=== PATIENT | male | born 1935 | race Caucasian/White ===

== ENCOUNTER 2016-05-15 08:47 | Outpatient (CLI) | payer MEDICARE, BC ==
[~2016-05-15] VITALS: Ht 170.2 cm; Wt 70.1 kg
[~2016-05-15 08:47] MED LIST: ACID CONTROL150 MG PO; ARICEPT5 MG PO; ARTIFICIAL TEAR15 M5 OPHTH; ARTIFICIAL TEAR30 ML OPHTH; BACITRACIN1 PKT TOP; CELEXA40 MG PO; COLACE100 MG PO; COUMADIN ** IA3 MG PO; COUMADIN3 MG PO; CPAP INH; CYMBALTA60 MG PO; DULCOLAX10 MG R; DULCOLAX5 MG PO; DURAGESIC 75MC75 MCG TRANS; ECOTRIN81 MG PO; FLONASE ALLER15.8 ML NOSE; HYDROCODON-ACE1 EAC4 PO; KLONOPIN0.5 MG PO; LASIX20 MG PO; LEVAQUIN750 MG PO; LIPITOR10 MG PO; LOPRESSOR25 MG PO; LOPRESSOR50 M1 PO; MAALOX MAXIMUM355 ML PO; MILK OF MA400 MG/5 M PO; MIRALAX17 GM PO; MIRTAZAPINE45 MG PO; MOVANTIK25 MG PO; NORCO 10-325 T1 EACH PO; NORCO 5-325 TA1 EACH PO; ONDANSETRON ODT4 MG PO; PAIN RELIEVER325 MG PO; PREPARATION H26 GM TOP; PROTONIX40 MG PO; RITALIN; TEARS NATURALE1 EACH; TUMS REGULAR ST1 TAB PO; ZYPREXA5 MG PO; ZYRTEC10 M3
--- NOTE | 2016-05-15 09:45 | NUR ---
D: RED/ SWOLLEN/ PURULENT SUPRAPUBIC SITE I: DR GAMBOA NOTIFIED. ASSESSES SITE. CANCELS PROCEDURE AND ORDERS PT TO BE DISMISSED TO DR. MUELLER OFFICE FOR TREATMENT OF SUPRAPUBIC CATH SITE. R; AGREES TO PLAN. PT NOT HAPPY AND DEMANDING NOW TO GET UP AND GET OUT OF HERE. I; FULL LIFT TO W/C TO DISMISS
[2016-05-15] MEDS ORDERED: NORCO 5-325 TA1 EACH PO (14:10)
== END 2016-05-15 10:25 | disposition disaster alternative care site (69) ==
LOC: GCAT 08:47 → GPCU 08:47 → GPOC 09:00 → GCAT 10:25 → GPOC 15:00
DX: I70.25 Atherosclerosis of native arteries of other extremities with ulceration (principal); Z53.9 Procedure and treatment not carried out, unspecified reason
CPT/HCPCS: J0690; J2001; J7030

== ENCOUNTER 2016-06-05 07:43 | Day surgery (SDC) | payer MEDICARE, BC ==
[~2016-06-05] VITALS: Ht 170.2 cm; Wt 72.2 kg
--- NOTE | ~2016-06-05 | OR ---
PATIENT'S NAME: ALEKSANDR BRADLEY [facility] AGE: 80 Y [address] ROOM: [place] [address] LOCATION: [facility] [place] ADMIT DATE: 06/05/2016 OR/Procedure Report DISCHARGE DATE: 06/05/2016 FAMILY PHYSICIAN: Reuben Garcia MD ATTENDING PHYSICIAN: Joao Gamboa SURGEON: Joao Gamboa MD NITRIC ACID CONCENTRATOR OPERATOR: DATE OF PROCEDURE: 06/05/2016 PREOPERATIVE DIAGNOSIS: Critical ischemia of the left lower extremity. POSTOPERATIVE DIAGNOSIS: Critical ischemia of the left lower extremity. PROCEDURE: Left lower extremity angiogram, SFA, and popliteal balloon angioplasty as well as TP trunk balloon angioplasty. FINE ARTS CHAIR: Saul. ANESTHESIA: General. ESTIMATED FLUID LOSS: 100 mL. FINDINGS: SFA occlusion, popliteal occlusion, and TP trunk occlusion with single-vessel anterior tibial runoff at the end of case. DESCRIPTION OF PROCEDURE: The patient was brought to irrigation laborer, placed supine on irrigation laborer table, prepped and draped in a sterile manner. Preoperative time- out was performed. We gained access via the right groin. We used 1% lidocaine. We then infiltrated skin with 1% lidocaine. We then used ultrasound guidance to gain access to the common femoral artery on the right. We used micropuncture needle followed by micropuncture wire, followed by a micropuncture sheath. We exchanged using Seldinger technique for a 5-Paraguayan short sheath. We went up in the aorta with an 0.035 Glidewire as well as Omni Flush catheter. We performed the aortogram, which showed patent common iliacs as well as patent external iliacs. We went up and over the aortic bifurcation, parked our catheter in the common femoral left and performed a series of angiograms. The distal SFA was occluded. There was proximal popliteal reconstitution, then a popliteal occlusion, a single-vessel anterior tib, and an occlusion of the TP trunk. We passed a Magic Torque wire through the Omni Flush catheter, removed the catheter, removed the sheath, and exchanged for a 6-Par[place]ayan destination sheath. We also then gave 5000 units of heparin. The patient received a total of 6000 units of heparin. We then used a 0.014 wire in order to traverse the occlusions. We then balloon angioplastied the popliteal and the SFA with initially a 3 mm balloon and then increased up to a 5 mm balloon with reconstitution of the SFA and popliteal PATIENT'S NAME: ALEKSANDR BRADLEY [facility] AGE: 80 Y [address] ROOM: [place] [address] LOCATION: [facility] [place] ADMIT DATE: 06/05/2016 OR/Procedure Report DISCHARGE DATE: 06/05/2016 FAMILY PHYSICIAN: Reuben Garcia MD ATTENDING PHYSICIAN: Joao Gamboa. We then attempted to cross the TP trunk lesions, which we were able to do and then we angioplastied first with a 2 mm balloon and then a 3 mm balloon. Unfortunately, we created a dissection plane in the TP trunk, which we then had to balloon the tibial trunk once again with a 3 mm balloon to occlude it and then reversed the heparin to stop the extravasation of the blood flow. After that, there was a single-vessel anterior tibial runoff, which was incontinuity with the SFA popliteal lesions. However, the patient had lesions on his left heel and this will likely not heal. He is nonambulatory and will likely require an above-knee amputation. The sheath was removed. Pressure was held for 10 minutes. The patient tolerated the procedure well. Protamine was used to reverse heparin. The patient was transferred to recovery room and then back to his group home. JOAO GAMBOA MD FKM/modl /[id number] d: 06/06/16 0016 t: 06/11/16 1508, OPERATIVE SUMMARY
[2016-06-05 08:55] LABS: INR - (THERAPEUTIC) 1.2 (0.9-1.1); PROTIME 12.9 SECONDS (9.6-11.1)
== END 2016-06-05 16:05 | disposition disaster alternative care site (69) ==
LOC: GSDC 07:43 → GOPP 08:00 → EDSTATUS 08:00 → GSDC 16:05
PROVIDERS: Surgery Vascular Surgery
PROC: 047N0ZZ Dilation of Left Popliteal Artery, Open Approach (ICD-10-PCS; principal; 2016-06-05)
PROC: 047L0ZZ Dilation of Left Femoral Artery, Open Approach (ICD-10-PCS; 2016-06-05)
DX: I99.8 Other disorder of circulatory system (principal)
CPT/HCPCS: C1725; C1769; C1887; J0690; J1630; J1644; J2001; J2250; J2720; J3010; J3480; J7030

== ENCOUNTER → 2016-07-10 | Outpatient (CLI) | payer MEDICARE, BC ==
[2016-07-10 08:28] LABS: PROTIME 64.8 SECONDS (9.8-11.4)
[2016-07-10 08:34] LABS: INR - (THERAPEUTIC) 6.06 (0.92-1.07)
== END | disposition disaster alternative care site (69) ==
LOC: LHULL 08:04
PROVIDERS: Family Medicine
DX: Z79.01 Long term (current) use of anticoagulants (principal)

== ENCOUNTER 2016-07-11 19:38 | Emergency (ER) | payer MEDICARE, BC ==
--- NOTE | ~2016-07-11 | ER ---
PATIENT'S NAME: TOMAHAWKALEKSANDR [facility] AGE: 81 Y [address] ROOM: [place] [address] LOCATION: [facility] ADMIT DATE: 07/11/2016 ER/Outpatient Report DISCHARGE DATE: 07/11/2016 FAMILY PHYSICIAN: Reuben Garcia MD ATTENDING PHYSICIAN: Mary Campos Time of arrival: 1938 hours. Time of evaluation: 2015 hours. IDENTIFICATION: An 81-year-old male. CHIEF COMPLAINT: Suprapubic catheter problems. HISTORY OF PRESENT ILLNESS: The patient has a suprapubic catheter that is not draining well, [facility]. Family was seen in the clinic today and they did not feel that was adequately addressed and he continues to have problems leaking around the catheter site. The patient does have some suprapubic discomfort. PAST MEDICAL HISTORY: ALLERGIES: NO KNOWN DRUG ALLERGIES. CURRENT MEDICATIONS: Refer to the MAR. MEDICAL PROBLEMS: 1. Sleep apnea. 2. Lumbar spinal stenosis. 3. Hypertension. 4. Coronary artery disease. 5. Depression. 6. SVT. 7. Hyperlipidemia. PRIOR SURGERIES: 1. Tonsillectomy. 2. Back surgery. 3. Suprapubic catheter. 4. Aortic arch repair. SOCIAL HISTORY: PATIENT'S NAME: TOMAHAWKALEKSANDR [facility] AGE: 81 Y [address] ROOM: [place] [address] LOCATION: [facility] ADMIT DATE: 07/11/2016 ER/Outpatient Report DISCHARGE DATE: 07/11/2016 FAMILY PHYSICIAN: Reuben Garcia MD ATTENDING PHYSICIAN: Mary Campos The patient lives in [facility]. Tobacco use, quit in 2009. PHYSICAL EXAMINATION: Afebrile. Vital signs are stable. The patient does have some suprapubic pubic tenderness. DIAGNOSTIC DATA: Bladder scan only revealed 20 mL of urine retained. We repositioned the catheter and it flowed easily, but then complained of pressure again. It was not leaking around it. We did talk with Dr. Moreno, who agreed that if it is draining that we can leave it in at this point. However, the patient continued to have discomfort. So, we did elect to change the suprapubic catheter. The catheter was replaced without difficulty. IMPRESSION: Suprapubic catheter malfunction. PLAN: Replacement. Continue routine catheter cares and follow up with Dr. Moreno. MD LANA CUI/matthew /[id number] d: 07/22/16 1211 t: 07/25/16 0640, OUTPATIENT REPORT
== END 2016-07-11 21:42 | disposition disaster alternative care site (69) ==
LOC: GMED 19:38
PROC: 0T2BX0Z Change Drainage Device in Bladder, External Approach (ICD-10-PCS; principal; 2016-07-11)
PROC: 4A0D7LZ Measurement of Urinary Volume, Via Natural or Artificial Opening (ICD-10-PCS; 2016-07-11)
DX: T83.091A Other mechanical complication of indwelling urethral catheter, initial encounter (principal); I10 Essential (primary) hypertension; I25.10 Atherosclerotic heart disease of native coronary artery without angina pectoris; E78.5 Hyperlipidemia, unspecified; F32.9 Major depressive disorder, single episode, unspecified; I47.1 Supraventricular tachycardia; G47.30 Sleep apnea, unspecified; Z87.891 Personal history of nicotine dependence; Z90.89 Acquired absence of other organs; Z98.890 Other specified postprocedural states; Z79.899 Other long term (current) drug therapy